=== PATIENT | male | born 1985 | race African-American/Black ===

== ENCOUNTER 2020-07-13 12:01 | Emergency (ER) | payer MEDICAID ==
--- NOTE | 2020-07-13 12:11 | NUR ---
LEFT WITHOUT BEING TRIAGED.
[2020-07-13] MEDS ORDERED: GABA300C PO (13:56)
== END 2020-07-13 12:11 | disposition left against medical advice (07) ==
LOC: MED 12:01
DX: T50.Z95A Adverse effect of other vaccines and biological substances, initial encounter (principal); Z53.21 Procedure and treatment not carried out due to patient leaving prior to being seen by health care provider

== ENCOUNTER 2020-07-13 13:17 | Emergency (ER) | payer MEDICAID ==
[~2020-07-13] VITALS: Ht 175.3 cm; Wt 120.2 kg
[2020-07-13 13:36] VITALS: BP 116/69
[2020-07-13] MEDS ORDERED: GABAPENTIN 300 MG CAP PO ONE (13:55)
[2020-07-13] MEDS ORDERED: GABA300C PO (13:56)
[2020-07-13 14:06] VITALS: BP 116/69
== END 2020-07-13 14:07 | disposition home or self-care (01) ==
LOC: MED 13:17
DX: G90.09 Other idiopathic peripheral autonomic neuropathy (principal)
CPT/HCPCS: 99283

== ENCOUNTER 2020-09-27 08:50 | Emergency (ER) | payer MEDICAID ==
[~2020-09-27] VITALS: Ht 175.3 cm; Wt 120.2 kg
[~2020-09-27 08:50] MED LIST: GABA300C PO
[2020-09-27 08:56] VITALS: BP 139/84
--- NOTE | 2020-09-27 09:01 | NUR ---
PT AMBULATED TO BED 12
--- NOTE | 2020-09-27 09:12 | NUR ---
34/M presents to ED with c/o back pain. Patient states has hx of chronic back pain from an injury "playing football years ago." Patient states he has had episodes of reoccurring back pain since his injury, states for two days now has had constant sharp 10/10 back pain with no relief, reports taking Tylenol on onset but has had no relief. Denies any new injury or trauma. Patient alert and oriented x4, answering questions appropriately, able to ambulate without assistance.
[2020-09-27] MEDS ORDERED: predniSONE 20 MG TAB PO ONE (09:45)
[2020-09-27] MEDS ORDERED: ACET-5629 PO (09:57)
[2020-09-27] MEDS ORDERED: PRED20TA5 PO (09:57)
--- NOTE | 2020-09-27 10:20 | NUR ---
Patient discharged with v/s stable. Written and verbal after care instructions given and explained. Patient alert, oriented and verbalized understanding of instructions. Ambulatory with steady gait. All questions addressed prior to discharge. ID band removed. Patient advised to follow up with PMD. Rx of Percocet and Prednisone given. Patient educated on indication of medication including possible reaction and side effects. Opportunity to ask questions provided and answered.
[2020-09-27 10:21] VITALS: BP 139/84
== END 2020-09-27 10:20 | disposition home or self-care (01) ==
LOC: MED 08:50
DX: G89.29 Other chronic pain (principal); M54.9 Dorsalgia, unspecified; J45.909 Unspecified asthma, uncomplicated
CPT/HCPCS: 81002; 99283; J7512

== ENCOUNTER 2020-10-28 12:41 | Emergency (ER) | payer MEDICAID ==
[~2020-10-28] VITALS: Ht 175.3 cm; Wt 102.1 kg
[~2020-10-28 12:41] MED LIST changes: +ACET-5629 PO; +PRED20TA5 PO
[2020-10-28 12:49] VITALS: BP 146/90
--- NOTE | 2020-10-28 12:54 | NUR ---
LOBBY Addendum: 10/28/20 at 1331 by [email or web address] NO NEED NURSING INTERVENTIONS. SEEN BY MARVEL CHRISTOPHER.
[2020-10-28] MEDS ORDERED: ACET-5629 PO (13:10)
[2020-10-28] MEDS ORDERED: PRED20TA5 PO (13:10)
--- NOTE | 2020-10-28 13:29 | NUR ---
Patient discharged with v/s stable. Written and verbal after care instructions given and explained. Patient alert, oriented and verbalized understanding of instructions. Ambulatory with steady gait. All questions addressed prior to discharge. ID band removed. Patient advised to follow up with PMD. Rx of PERCOCET & PREDNISONE given. Patient educated on indication of medication including possible reaction and side effects. Opportunity to ask questions provided and answered.
[2020-10-28 13:32] VITALS: BP 146/90
== END 2020-10-28 13:29 | disposition home or self-care (01) ==
LOC: MED 12:41
DX: G89.29 Other chronic pain (principal); M54.9 Dorsalgia, unspecified; J45.909 Unspecified asthma, uncomplicated; F12.90 Cannabis use, unspecified, uncomplicated; Z76.0 Encounter for issue of repeat prescription; Z79.899 Other long term (current) drug therapy
CPT/HCPCS: 99281